=== PATIENT | male | born 1995 | race Caucasian/White ===

== ENCOUNTER 2017-05-09 05:56 | Day surgery (SDC) | payer OTHER ==
[2017-05-06 10:23] VITALS: BMI 25.8
[2017-05-09] MEDS ORDERED: PROPOFOL 20 ML ONE ×2 (07:23)
[2017-05-09] MEDS ORDERED: MIDAZOLAM HCL 2 MG/2 ML SINGLE DOSE VIAL ONE (07:23)
[2017-05-09] MEDS ORDERED: DEXAMETHASONE SOD PHOSPHATE 4 MG/1 ML VIAL ONE (07:27)
[2017-05-09] MEDS ORDERED: ONDANSETRON 4 MG/2 ML VIAL ONE (07:27)
[2017-05-09] MEDS ORDERED: BUPIVACAINE HCL/PF 2.5 MG/ML - 30 ML VIAL IJ ONE (07:30)
[2017-05-09] MEDS ORDERED: ceFAZolin SODIUM 1 GM VIAL ONE (07:44)
[2017-05-09] MEDS ORDERED: KETOROLAC TROMETHAMINE 30 MG/1 ML VIAL ONE (07:47)
[2017-05-09] MEDS ORDERED: ONDANSETRON 4 MG/2 ML VIAL IVPUSH PRN (08:38)
[2017-05-09] MEDS ORDERED: oxyCODONE HCL 5 MG TABLET PO PRN (08:38)
[2017-05-09] MEDS ORDERED: LACTATED RINGERS SOLUTION 1,000 ML IV SCH (08:45)
--- NOTE | 2017-05-09 08:51 | OP ---
Operative Note - Note: Operative Date: 05/09/17 Pre-Operative Diagnosis: right knee medial, lateral meniscal tears Operation: right knee arthroscopy - medial meniscal repair, lateral meniscal debridement Implants: fast fix 360x1 Post-Operative Diagnosis: Other (same + ACL graft failure) Surgeon: Jong Noriega Anesthesiologist/FEEDER CATCHER TOBACCO: Boris Pollock Anesthesia: General Estimated Blood Loss (mls): 10 Operative Report Dictated: Yes
[2017-05-09 09:43] VITALS: TEMP 98.5
--- NOTE | 2017-05-09 10:15 | OP ---
DATE OF OPERATION: 05/09/2017 SURGEON: Jong Aguilera MD PREOPERATIVE DIAGNOSIS: Right knee medial and lateral meniscal tears. POSTOPERATIVE DIAGNOSIS: Right knee medial and lateral meniscal tears, plus anterior cruciate ligament insufficiency, failed graft. PROCEDURE: Right knee arthroscopy, partial lateral meniscectomy, medial meniscal repair. ANESTHESIA: General. POSTOPERATIVE CONDITION: Stable. COMPLICATIONS: None. IMPLANTS: [employer] Fast-Fix 360 x1. INDICATIONS: This is a pleasant young gentleman who a few years prior had undergone operative ACL reconstruction utilizing hamstring autograft. He was doing well. However, he started to develop pain in the knee. MRI demonstrated medial and lateral meniscal tearing with poor visualization of the proximal portion of the graft. The physical examination of the patient did show that there was slightly increased Destin. However, there was a good endpoint, and he had only a mildly positive pivot glide. It was felt from patients last physical examination, that though the graft was poorly visualized, it was clinically stable and therefore no need for graft revision was necessary. That being said, he did have a peripheral meniscal tear on the medial side which appeared repairable. I discussed that this is best repaired early on as these can progress to irreparable over time. This said, the lateral tear appeared more complex and was most likely going to be a meniscectomy. I reviewed the risks of meniscal surgery including bleeding, infection, neurovascular injury, need for further surgery, postoperative pain and stiffness, progression of osteoarthritis. We discussed that meniscal repairs heal about 70% of the time. If the meniscal repair does not heal, he may need a further surgery down the road. We reviewed medical risks such as heart attack, stroke, DVT, PE, and . I addressed all the patients and his mothers questions. They voiced understanding and elected to proceed. DESCRIPTION OF PROCEDURE: The patient was brought to the operating room where general anesthesia was administered. The right lower extremity was prepped and draped in the usual sterile fashion. A preoperative dose of antibiotics was given, and the usual time-out procedure was performed. Preoperative examination of the knee demonstrated a 1+ Destin with good endpoint. Again noted was a pivot glide. The collaterals were stable. The PCL was stable. The portal sites were now injected subcutaneously with 0.25% Marcaine. The 11-blade was used to establish the lateral portal. The arthroscope was passed into the knee. Examination of the patellofemoral joint demonstrated no significant cartilage lesions. Passing the arthroscope down to the notch demonstrated an empty lateral wall. Some sutures were seen to be exiting from the femoral tunnel. The ACL graft was seen to be healed into the PCL, and a Destin maneuver was performed which demonstrated that this graft did take up tension explaining why his examination demonstrated only mild instability without gross instability. The arthroscope was now passed into the medial compartment. Here, medial portal was established under spinal needle localization. The meniscus was examined at first demonstrating no gross lesions. There was some mild superficial fraying of the articular surface of both the femoral and tibial sides. A probe was now passed, and at the posterior horn of the medial meniscus there was peripheral tear noted, which was unstable. The shaver was passed here to roughen up the tear. Given the tear was unstable, it was decided to perform a meniscal repair. Utilizing a Fast-Fix 360 device, the device was inserted, felt to pass through the capsule and then deployed. This was then repeated in a horizontal mattress fashion. The meniscus was now reprobed and found to be stable. Attention was turned laterally. Here, the lateral meniscus was examined. There was a partial-thickness radial tear at the body of the meniscus. There was a horizontal cleavage tear at the posterior horn. Utilizing a shaver, this was debrided down to a stable base. Again, there were some superficial articular changes. Given that the initial plan was to take care of the meniscus today, this was all that was performed at this time. While I do believe would best benefit from revision ACL procedure, he was not consented for this and this was not the plan. I believe a stage procedure would be best at this time. The portals were now sutured using 3-0 nylon. Sterile dressings were placed. The patient was extubated and transferred to the recovery room in stable condition. I did discuss the findings with his mother and will discuss with him later today. JONG AGUILERA M.D. [id number]
[2017-05-09 11:14] VITALS: BP 122/74; PULSE 66
== END 2017-05-09 11:16 | disposition home or self-care (01) ==
LOC: FASU 05:56
PROVIDERS: ATTEND Orthopaedic Surgery Sports Medicine
PROC: 0SQC4ZZ Repair Right Knee Joint, Percutaneous Endoscopic Approach (ICD-10-PCS; 2017-05-09)
PROC: 0SBC4ZZ Excision of Right Knee Joint, Percutaneous Endoscopic Approach (ICD-10-PCS; principal; 2017-05-09 07:52)
DX: S83.241A Other tear of medial meniscus, current injury, right knee, initial encounter (principal); S83.281A Other tear of lateral meniscus, current injury, right knee, initial encounter; S83.511A Sprain of anterior cruciate ligament of right knee, initial encounter; X58.XXXA Exposure to other specified factors, initial encounter; Y93.9 Activity, unspecified; Y92.9 Unspecified place or not applicable
CPT/HCPCS: 94760; 97116-GP